=== PATIENT | female | born 1995 | race Caucasian/White ===

== ENCOUNTER 2017-01-03 13:37 | Emergency (ER) | payer BC ==
[2017-01-03] MEDS ORDERED: SODIUM CHLORIDE 0.9% 1,000 ML IV ONE (16:01)
[2017-01-03] MEDS ORDERED: PENICILLIN V POTASSIUM 250 MG TAB PO STA (16:01)
[2017-01-03 16:49] LABS: Basophils % (A) 0 %; CH 31.3; CHCM 34.1; Eosinophils # (A) 0.1 k/uL (0-0.7); Eosinophils % (A) 1 %; HCT 41.6 % (34.0-46.0); HDW 2.26; HGB 14.3 gm/dL (11.4-16.0); Luc # (Auto) 0.06; Luc % (Auto) 1; Lymphocytes # (A) 1.1 k/uL (1.0-4.8); Lymphocytes % (A) 20 %; MCH 31.7 pg (25.0-35.0); MCHC 34.5 g/dL (31.0-37.0); MCV 92.1 fL (80.0-100.0); Mean Platelet Volume 6.6; Monocytes # (A) 0.2 k/uL (0-1.0); Monocytes % (A) 4 %; Neutrophils # (A) 4.2 k/uL (1.3-7.7); Neutrophils % (A) 74 %; RBC 4.52 m/uL (3.80-5.40); RDW 12.5 % (11.5-15.5); WBC 5.7 k/uL (3.8-10.6); WBC (Perox) 5.82
[2017-01-03 17:00] LABS: Anion Gap 11 mmol/L; Blood Urea Nitrogen 7 mg/dL (7-17); Calcium 9.8 mg/dL (8.4-10.2); Carbon Dioxide 25 mmol/L (22-30); Chloride 108 mmol/L (98-107); Glucose 108 mg/dL (74-99); Non-African American GFR(MDRD) >60 (>60 ml/min/1.73 sqM); Potassium 4.1 mmol/L (3.5-5.1); Sodium 144 mmol/L (137-145)
[2017-01-03 17:20] LABS: HCG,Qualitative Serum Not Detected
--- NOTE | 2017-01-03 17:44 | ED ---
Dizziness HPI - General Chief Complaint: Dizziness Stated Complaint: Dizzy/Chills/Fever Time Seen by Provider: 01/03/17 15:27 Source: patient Mode of arrival: wheelchair Limitations: no limitations - History of Present Illness Initial Comments: 21-year-old female with past medical history of orthostatic hypotension percent for evaluation of dizziness for the last 4 days acutely worsening over the last day. She describes it as room spinning sensation and there is associated shortness breath nausea and subjective fever/chills however she denies any other symptoms including dysuria, chest pain, cough. She states that she has been having some dental pain and feels as though there is an abscess in her mouth however she is unable follow-up with a primary care physician or dentist as she has no insurance at this time. - Related Data Previous Rx's Medication Instructions Recorded Meclizine [Antivert] 25 mg PO TID #30 tab 01/03/17 Penicillin V Potassium [Pen Vee K] 500 mg PO QID #28 tab 01/03/17 Allergies Allergy/AdvReac Type Severity Reaction Status Date / Time ibuprofen [From Motrin] Allergy Anaphylaxis Verified 01/03/17 15:23 naproxen Allergy Anaphylaxis Verified 01/03/17 15:23 Review of Systems ROS Statement: Those systems with pertinent positive or pertinent negative responses have been documented in the HPI. ROS Other: All systems not noted in ROS Statement are negative. Constitutional: Reports: fever, chills Eyes: Denies: eye pain, eye discharge ENT: Reports: dental pain. Denies: ear pain, throat pain Respiratory: Reports: dyspnea. Denies: cough Cardiovascular: Denies: chest pain, palpitations Endocrine: Denies: fatigue, heat or cold intolerance Gastrointestinal: Denies: abdominal pain, nausea, vomiting Genitourinary: Denies: urgency, dysuria Musculoskeletal: Denies: back pain, arthralgia Skin: Denies: rash, lesions Neurological: Reports: vertigo. Denies: headache, weakness Psychiatric: Denies: anxiety, depression Hematological/Lymphatic: Denies: easy bleeding, easy bruising Past Medical History Past Medical History: No Reported History History of Any Multi-Drug Resistant Organisms: None Reported Past Surgical History: Cholecystectomy Past Psychological History: Anxiety Smoking Status: Current every day smoker Past Alcohol Use History: Rare Past Drug Use History: None Reported General Exam Limitations: no limitations General appearance: alert, in no apparent distress Head exam: Present: atraumatic, normocephalic, normal inspection Eye exam: Present: normal appearance, PERRL, EOMI. Absent: scleral icterus, conjunctival injection, periorbital swelling ENT exam: Present: normal exam, mucous membranes moist Neck exam: Present: normal inspection. Absent: tenderness, meningismus, lymphadenopathy Respiratory exam: Present: normal lung sounds bilaterally. Absent: respiratory distress, wheezes, rales, rhonchi, stridor Cardiovascular Exam: Present: regular rate, normal rhythm, normal heart sounds. Absent: systolic murmur, diastolic murmur, rubs, gallop, clicks GI/Abdominal exam: Present: soft, normal bowel sounds. Absent: distended, tenderness, guarding, rebound, rigid Rectal exam: Present: deferred Extremities exam: Present: normal inspection, full ROM, normal capillary refill. Absent: tenderness, pedal edema, joint swelling, calf tenderness Back exam: Present: normal inspection Neurological exam: Present: alert, oriented X3, CN II-XII intact Psychiatric exam: Present: normal affect, normal mood Skin exam: Present: warm, dry, intact, normal color. Absent: rash Course Vital Signs 01/03/17 01/03/17 01/03/17 13:47 15:27 16:25 Temperature 100.0 F H 98.0 F Pulse Rate 115 H 73 Respiratory 18 20 Rate Blood Pressure 119/76 114/71 Blood Pressure 122/63 [Right Arm Sitting] Blood Pressure 123/72 [Right Arm Standing] Blood Pressure 99/57 [Right Arm Supine] O2 Sat by Pulse 98 97 Oximetry 01/03/17 18:15 Temperature 98.6 F Pulse Rate 90 Respiratory 18 Rate Blood Pressure 122/74 Blood Pressure [Right Arm Sitting] Blood Pressure [Right Arm Standing] Blood Pressure [Right Arm Supine] O2 Sat by Pulse 99 Oximetry EKG Findings - EKG Comments: EKG Findings:: Normal sinus rhythm with ventricular rate of 87, GUSTAVO 154, QRS 80 , QT/QTC 396/476. Medical Decision Making - Medical Decision Making 21-year-old female presented for evaluation of dizziness described as head spinning for the last 4 days acutely worsening today. On physical examination she has cranial nerves II through XII intact without focal neurologic deficits and normal gait and station. ENT exam reveals a missing tooth (#31) but she states this previously been fractured. There is no surrounding loculated or fluctuant mass. Orthostatic vital signs were negative and labs revealed no significant abnormalities. Patient was negative for . On reevaluation the patient had improvement in symptoms and states that she was no longer dizzy or lightheaded. She was observed walking on the hallway with normal gait and station. She was updated on the results of all her labs and through shared decision making it was determined that she would be discharged with instructions to follow-up with her primary care physician but to return to this facility if her symptoms should worsen or persist. The patient was also given a prescription for antibiotics for dental infection and advised to follow-up with dentist. She was offered dental clinic information but refused at this time. The patient acknowledged an understanding of all information provided and agreed with this plan of care. - Lab Data Result diagrams: 01/03/17 16:34 01/03/17 16:34 Lab Results 01/03/17 01/03/17 Range/Units 16:34 16:34 WBC 5.7 (3.8-10.6) k/uL RBC 4.52 (3.80-5.40) m/uL Hgb 14.3 (11.4-16.0) gm/dL Hct 41.6 (34.0-46.0) % MCV 92.1 (80.0-100.0) fL MCH 31.7 (25.0-35.0) pg MCHC 34.5 (31.0-37.0) g/dL RDW 12.5 (11.5-15.5) % Plt Count 253 (150-450) k/uL Neutrophils % 74 % Lymphocytes % 20 % Monocytes % 4 % Eosinophils % 1 % Basophils % 0 % Neutrophils # 4.2 (1.3-7.7) k/uL Lymphocytes # 1.1 (1.0-4.8) k/uL Monocytes # 0.2 (0-1.0) k/uL Eosinophils # 0.1 (0-0.7) k/uL Basophils # 0.0 (0-0.2) k/uL Sodium 144 (137-145) mmol/L Potassium 4.1 (3.5-5.1) mmol/L Chloride 108 H (98-107) mmol/L Carbon Dioxide 25 (22-30) mmol/L Anion Gap 11 mmol/L BUN 7 (7-17) mg/dL Creatinine 0.50 L (0.52-1.04) mg/dL Est GFR (MDRD) Af Amer >60 (>60 ml/min/1.73 sqM) Est GFR (MDRD) Non-Af >60 (>60 ml/min/1.73 sqM) Glucose 108 H (74-99) mg/dL Calcium 9.8 (8.4-10.2) mg/dL HCG, Qual Not Detected Disposition Clinical Impression: Dizziness Disposition: HOME SELF-CARE Condition: Stable Instructions: Dizziness (ED) Additional Instructions: Please use medication as discussed. Please follow up with family doctor if symptoms have not improved over the next two days. Please return to the emergency room if your symptoms increase or worsen or for any other concerns. Prescriptions: Meclizine [Antivert] 25 mg PO TID #30 tab Penicillin V Potassium [Pen Vee K] 500 mg PO QID #28 tab Referrals: None,Stated [Primary Care Provider] - 1-2 days Kassie Cutler DO [Doctor of Osteopathic Medicine] - 1-2 days Time of Disposition: 17:58
[2017-01-03 19:14] VITALS: BP 122/74; PULSE 90; RESP 18; TEMP 98.6
== END 2017-01-03 18:20 | disposition home or self-care (01) ==
LOC: EC 13:37
DX: R42 Dizziness and giddiness (principal); R06.02 Shortness of breath; R50.9 Fever, unspecified; R11.0 Nausea; K08.89 Other specified disorders of teeth and supporting structures; F17.200 Nicotine dependence, unspecified, uncomplicated; Z88.6 Allergy status to analgesic agent
CPT/HCPCS: 36415; 80048; 84703; 85025; 93005; 96360; 99284

== ENCOUNTER 2019-04-30 17:13 | Emergency (ER) | payer BC ==
[2019-04-30 18:21] LABS: Appearance,Urine Clear (Clear); Bacteria,Urine Rare /hpf; Basophils % (A) 0 %; Bilirubin,Urine Negative (Negative); Blood,Urine Small (Negative); Color,Urine Yellow; Eosinophils # (A) 0.1 k/uL (0-0.7); Eosinophils % (A) 1 %; Glucose,Urine (UA) Negative (Negative); HCT 41.9 % (34.0-46.0); HGB 14.2 gm/dL (11.4-16.0); Hyaline Casts,Urine 1 /lpf (0-2); Ketones,Urine Negative (Negative); Leukocyte Esterase,Urine Negative (Negative); Lymphocytes # (A) 1.4 k/uL (1.0-4.8); Lymphocytes % (A) 20 %; MCH 32.3 pg (25.0-35.0); Mean Platelet Volume 6.7; Monocytes # (A) 0.3 k/uL (0-1.0); Monocytes % (A) 4 %; Mucus,Urine Moderate /hpf; Neutrophils # (A) 5.1 k/uL (1.3-7.7); Neutrophils % (A) 74 %; Nitrite,Urine Negative (Negative); PH, Urine 6.5 (5.0-8.0); Platelet Count 273 k/uL (150-450); Protein,Urine Negative (Negative); RBC 4.41 m/uL (3.80-5.40); RBC,Urine 1 /hpf (0-5); Specific Gravity,Urine 1.021 (1.001-1.035); Squamous Epithelial Cell,Urine 4 /hpf (0-4); Urobilinogen,Urine <2.0 mg/dL (<2.0); WBC,Urine 1 /hpf (0-5)
[2019-04-30 18:23] LABS: ALT 12 U/L (4-34); AST 22 U/L (14-36); African American GFR (CKD) >90 (>60 ml/min/1.73 sqM); Albumin 4.8 g/dL (3.5-5.0); Alkaline Phosphatase 39 U/L (38-126); Anion Gap 11 mmol/L; Blood Urea Nitrogen 8 mg/dL (7-17); Calcium 9.8 mg/dL (8.4-10.2); Carbon Dioxide 24 mmol/L (22-30); Chloride 105 mmol/L (98-107); Glucose 70 mg/dL (74-99); Non-African American GFR(CKD) >90 (>60 ml/min/1.73 sqM); Sodium 140 mmol/L (137-145); Total Bilirubin 0.6 mg/dL (0.2-1.3); Total Protein 7.8 g/dL (6.3-8.2)
--- NOTE | 2019-04-30 18:36 | ED ---
Abdominal Pain HPI - General Source: patient Mode of arrival: ambulatory Limitations: no limitations <Chela Montoya - Last Filed: 04/30/19 19:45> <Maicol Nash - Last Filed: 04/30/19 20:57> - General Chief Complaint: Abdominal Pain Stated Complaint: 8wks preg, cramping Time Seen by Provider: 04/30/19 17:17 - History of Present Illness Initial Comments: patient is a 23-year-old female presenting to emergency Department with complaints of vaginal bleeding and lower abdominal cramping that started today. Patient states she is approximately 8 weeks . . She does not yet seen an [employer]. Patient states she has been having a very small amount of spotting the last couple days and then that increased today, along with some abdominal cramping. patient states is not enough to fill a pad however she is wearing one. Patient denies dysuria, nausea, vomiting. Patient has no other complaints at this time. Upon arrival to the ER, her vital signs are stable. (Chela Montoya) - Related Data Previous Rx's Medication Instructions Recorded Meclizine [Antivert] 25 mg PO TID #30 tab 01/03/17 Penicillin V Potassium [Pen Vee K] 500 mg PO QID #28 tab 01/03/17 Allergies Allergy/AdvReac Type Severity Reaction Status Date / Time ibuprofen [From Motrin] Allergy Anaphylaxis Verified 04/30/19 17:14 naproxen Allergy Anaphylaxis Verified 04/30/19 17:14 Review of Systems ROS Other: All systems not noted in ROS Statement are negative. <Chela Montoya - Last Filed: 04/30/19 19:45> ROS Other: All systems not noted in ROS Statement are negative. <Maicol Nash - Last Filed: 04/30/19 20:57> ROS Statement: Those systems with pertinent positive or pertinent negative responses have been documented in the HPI. Past Medical History Past Medical History: No Reported History History of Any Multi-Drug Resistant Organisms: None Reported Past Surgical History: Cholecystectomy Past Psychological History: Anxiety Smoking Status: Current every day smoker Past Alcohol Use History: Rare Past Drug Use History: None Reported <Chela Montoya - Last Filed: 04/30/19 19:45> General Exam Limitations: no limitations External exam: Present: normal external exam. Absent: swelling, lesions, lacerations Speculum exam: Present: vaginal bleeding. Absent: foreign body By manual exam: Present: normal by manual exam <Chela Montoya Mark - Last Filed: 04/30/19 19:45> General appearance: alert, in no apparent distress Head exam: Present: atraumatic, normocephalic, normal inspection Eye exam: Present: normal appearance, PERRL, EOMI. Absent: scleral icterus, conjunctival injection, periorbital swelling ENT exam: Present: normal exam, mucous membranes moist Neck exam: Present: normal inspection. Absent: tenderness, meningismus, lymphadenopathy Respiratory exam: Present: normal lung sounds bilaterally. Absent: respiratory distress, wheezes, rales, rhonchi, stridor Cardiovascular Exam: Present: regular rate, normal rhythm, normal heart sounds. Absent: systolic murmur, diastolic murmur, rubs, gallop, clicks GI/Abdominal exam: Present: soft, normal bowel sounds. Absent: distended, tenderness, guarding, rebound, rigid Extremities exam: Present: normal inspection, full ROM, normal capillary refill. Absent: tenderness, pedal edema, joint swelling, calf tenderness Back exam: Present: normal inspection Neurological exam: Present: alert, oriented X3, CN II-XII intact Psychiatric exam: Present: normal affect, normal mood Skin exam: Present: warm, dry, intact, normal color. Absent: rash <Maicol Nash - Last Filed: 04/30/19 20:57> - General Exam Comments Initial Comments: GENERAL: Well-appearing, well-nourished and in no acute distress. HEAD: Atraumatic, normocephalic. EYES: Pupils equal round and reactive to light, extraocular movements intact, sclera anicteric, conjunctiva are normal. ENT: TMs normal, nares patent, oropharynx clear without exudates. Moist mucous membranes. NECK: Normal range of motion, supple without lymphadenopathy or JVD. LUNGS: Breath sounds clear to auscultation bilaterally and equal. No wheezes rales or rhonchi. HEART: Regular rate and rhythm without murmurs, rubs or gallops. ABDOMEN: Soft, nontender, normoactive bowel sounds. No guarding, no rebound. No masses appreciated. EXTREMITIES: Normal range of motion, no pitting or edema. No clubbing or cyanosis. SKIN: Warm, Dry, normal turgor, no rashes or lesions noted. (Chela Montoya) Course <Maicol Nash - Last Filed: 04/30/19 20:57> Vital Signs 04/30/19 17:14 Temperature 98.6 F Pulse Rate 111 H Respiratory 16 Rate Blood Pressure 123/87 O2 Sat by Pulse 96 Oximetry - Reevaluation(s) Reevaluation #1: 04/30/19 20:57 Spoke with The patient regarding findings, questions are answered (Jatinder Nash) Medical Decision Making - Lab Data Result diagrams: 04/30/19 18:00 04/30/19 18:00 <Chela Montoya - Last Filed: 04/30/19 19:45> - Lab Data Result diagrams: 04/30/19 18:00 04/30/19 18:00 - Radiology Data Radiology results: report reviewed (Ultrasound shows Positive gestational sac), image reviewed <Maicol Nash - Last Filed: 04/30/19 20:57> - Medical Decision Making patient is a 23-year-old female presenting with vaginal bleeding and abdominal cramping. Patient is currently 8 weeks . . Lab work shows no acute abnormalities. HCG Quant is 13,504. Urine shows small amount of blood otherwise normal. Trichomonas is negative. (Chela Montoya) 23 female who is in here for evaluation regarding some abdominal cramping but specifically spotting with . Ultrasound shows early IUP. Patient has no abdominal tenderness on exam. Patient can be discharged home (Wilner Nash) - Lab Data Lab Results 04/30/19 04/30/19 04/30/19 Range/Units 18:00 18:00 18:00 WBC 7.0 (3.8-10.6) k/uL RBC 4.41 (3.80-5.40) m/uL Hgb 14.2 (11.4-16.0) gm/dL Hct 41.9 (34.0-46.0) % MCV 95.0 (80.0-100.0) fL MCH 32.3 (25.0-35.0) pg MCHC 34.0 (31.0-37.0) g/dL RDW 12.0 (11.5-15.5) % Plt Count 273 (150-450) k/uL Neutrophils % 74 % Lymphocytes % 20 % Monocytes % 4 % Eosinophils % 1 % Basophils % 0 % Neutrophils # 5.1 (1.3-7.7) k/uL Lymphocytes # 1.4 (1.0-4.8) k/uL Monocytes # 0.3 (0-1.0) k/uL Eosinophils # 0.1 (0-0.7) k/uL Basophils # 0.0 (0-0.2) k/uL Sodium 140 (137-145) mmol/L Potassium 4.0 (3.5-5.1) mmol/L Chloride 105 (98-107) mmol/L Carbon Dioxide 24 (22-30) mmol/L Anion Gap 11 mmol/L BUN 8 (7-17) mg/dL Creatinine 0.46 L (0.52-1.04) mg/dL Est GFR (CKD-EPI)AfAm >90 (>60 ml/min/1.73 sqM) Est GFR (CKD-EPI)NonAf >90 (>60 ml/min/1.73 sqM) Glucose 70 L (74-99) mg/dL Calcium 9.8 (8.4-10.2) mg/dL Total Bilirubin 0.6 (0.2-1.3) mg/dL AST 22 (14-36) U/L ALT 12 (4-34) U/L Alkaline Phosphatase 39 (38-126) U/L Total Protein 7.8 (6.3-8.2) g/dL Albumin 4.8 (3.5-5.0) g/dL HCG, Quant 46465.2 mIU/mL Urine Color Urine Appearance (Clear) Urine pH (5.0-8.0) Ur Specific [place] (1.001-1.035) Urine Protein (Negative) Urine Glucose (UA) (Negative) Urine Ketones (Negative) Urine Blood (Negative) Urine Nitrite (Negative) Urine Bilirubin (Negative) Urine Urobilinogen (<2.0) mg/dL Ur Leukocyte Esterase (Negative) Urine RBC (0-5) /hpf Urine WBC (0-5) /hpf Ur Squamous Epith Cells (0-4) /hpf Urine Bacteria (None) /hpf Hyaline Casts (0-2) /lpf Urine Mucus (None) /hpf Trichomonas Ag (Rapid) (Negative) Blood Type O Positive Blood Type Recheck No Previous Record Bld Type Recheck Status [facility] ONLY 04/30/19 04/30/19 Range/Units 18:00 18:15 WBC (3.8-10.6) k/uL RBC (3.80-5.40) m/uL Hgb (11.4-16.0) gm/dL Hct (34.0-46.0) % MCV (80.0-100.0) fL MCH (25.0-35.0) pg MCHC (31.0-37.0) g/dL RDW (11.5-15.5) % Plt Count (150-450) k/uL Neutrophils % % Lymphocytes % % Monocytes % % Eosinophils % % Basophils % % Neutrophils # (1.3-7.7) k/uL Lymphocytes # (1.0-4.8) k/uL Monocytes # (0-1.0) k/uL Eosinophils # (0-0.7) k/uL Basophils # (0-0.2) k/uL Sodium (137-145) mmol/L Potassium (3.5-5.1) mmol/L Chloride (98-107) mmol/L Carbon Dioxide (22-30) mmol/L Anion Gap mmol/L BUN (7-17) mg/dL Creatinine (0.52-1.04) mg/dL Est GFR (CKD-EPI)AfAm (>60 ml/min/1.73 sqM) Est GFR (CKD-EPI)NonAf (>60 ml/min/1.73 sqM) Glucose (74-99) mg/dL Calcium (8.4-10.2) mg/dL Total Bilirubin (0.2-1.3) mg/dL AST (14-36) U/L ALT (4-34) U/L Alkaline Phosphatase (38-126) U/L Total Protein (6.3-8.2) g/dL Albumin (3.5-5.0) g/dL HCG, Quant mIU/mL Urine Color Yellow Urine Appearance Clear (Clear) Urine pH 6.5 (5.0-8.0) Ur Specific [place] 1.021 (1.001-1.035) Urine Protein Negative (Negative) Urine Glucose (UA) Negative (Negative) Urine Ketones Negative (Negative) Urine Blood Small H (Negative) Urine Nitrite Negative (Negative) Urine Bilirubin Negative (Negative) Urine Urobilinogen <2.0 (<2.0) mg/dL Ur Leukocyte Esterase Negative (Negative) Urine RBC 1 (0-5) /hpf Urine WBC 1 (0-5) /hpf Ur Squamous Epith Cells 4 (0-4) /hpf Urine Bacteria Rare H (None) /hpf Hyaline Casts 1 (0-2) /lpf Urine Mucus Moderate H (None) /hpf Trichomonas Ag (Rapid) Negative (Negative) Blood Type Blood Type Recheck Bld Type Recheck Status Disposition <Chela Montoya L - Last Filed: 04/30/19 19:45> Is patient prescribed a controlled substance at d/c from ED?: No <Maicol Nash - Last Filed: 04/30/19 20:57> Clinical Impression: Threatened Disposition: HOME SELF-CARE Condition: Good Instructions (If sedation given, give patient instructions): Threatened Miscarriage (ED) Referrals: None,Stated [Primary Care Provider] - 1-2 days Alicia López DO [Doctor of Osteopathic Medicine] - 1-2 days
[2019-04-30 19:05] LABS: HCG,Quantitative Serum 13504.2 mIU/mL
--- NOTE | 2019-04-30 20:44 | US ---
EXAMINATION TYPE: Transabdominal DATE OF EXAM: 04/30/2019 8:12 PM COMPARISON: NONE CLINICAL HISTORY: bleeding, pain. Bleeding, light pain x 3 days. EXAM PERFORMED: Transabdominal (TA). Transvaginal not performed per ordering physician. EXAM MEASUREMENTS: GESTATIONAL AGE / DATING Physician Established: Not yet established. Dates by LMP: (10 weeks/4 days) EDC: 11/22/2019 Dates by First Scan: This is first scan Dates by Current Scan for: Only gestational sac seen at this time. (5 weeks/5 days) EDC: 12/26/2019 MATERNAL ANATOMY Uterus: 7.8 x 5.9 x 5.5 cm. Right Ovary: 3.2 x 2.2 x 1.8 cm. Area of mixed echogenicity and peripheral vascularity seen within th e right ovary measurin.6 x 1.4 x 1.4 cm. Left Ovary: Not visualized. Post CDS / Adnexa: Appear to be wnl. Presence of free fluid: Not seen. Presence of corpus luteal cyst: Area of mixed echogenicity and peripheral vascularity seen within the right ovary measurin.6 x 1.4 x 1.4 cm. Presence of subchorionic bleed: Not seen GESTATION / SURVEY MSD: 1.46 cm. (5 weeks/5 days) IUP: Only possible gestational sac seen at this time. Date of LMP: 02/15/2019 Beta HcG (if available): 13,504.2 IMPRESSION: Possible early intrauterine gestational sac. Follow-up recommended in 2 weeks to confirm a living fet us of clinically indicated. Sac measures 18 x 5 x 20 mm.
[2019-04-30 21:09] VITALS: BP 115/71; PULSE 70; RESP 18; TEMP 97.6
[2019-05-01 16:34] LABS: C. trachomatis,PCR Negative (Neg,Equiv); Chlamydia trachomatis Source Cervix
[2019-05-01 16:41] LABS: N. gonorrhoeae,PCR Negative (Neg,Equiv); Neisseria Source Cervix
== END 2019-04-30 21:00 | disposition home or self-care (01) ==
LOC: EC 17:13
DX: O20.0 Threatened abortion (principal); O99.331 Smoking (tobacco) complicating pregnancy, first trimester; F17.200 Nicotine dependence, unspecified, uncomplicated; Z3A.08 8 weeks gestation of pregnancy; Z88.6 Allergy status to analgesic agent
CPT/HCPCS: 36415; 76801; 80053; 81001; 84702; 85025; 86900; 86901; 87070; 87491; 87591; 87808; 99284

== ENCOUNTER → 2023-10-26 | Day surgery (SDC) | payer BC ==
--- NOTE | 2023-10-25 09:25 | P.HPOR ---
History of Present Illness H&P Date: 10/25/23 Subjective: This is a 28 year old female that presents today for initial evaluation regarding a year history of progressively worsening right and left hand paresthesias in the thumb, index, middle and ring fingers with the right being worse than the left. The patient has tried bracing with little relief. They deny any inciting event or neck pain. She works as a cook at [employer] and notes worsening pain and burning in the hands and wrist that is worse after work. Physical Examination: RUE: AIN/PIN/Radial/Ulnar/Median motor intact. Radial/Ulnar/Median SILT. 2+/4 Radial/Ulnar pulses palpated. 5/5 APB, 5/5 FDI. Negative Finkelsteins, negative CMC grind, positive Durkan's compression. LUE: AIN/PIN/Radial/Ulnar/Median motor intact. Radial/Ulnar/Median SILT. 2+/4 Radial/Ulnar pulses palpated. 5/5 APB, 5/5 FDI. Negative Finkelsteins, negative CMC grind, positive Durkan's compression. Impression: 1.) Right carpal tunnel syndrome 2.) Left carpal tunnel syndrome Plan: Diagnosis and treatment options were discussed with the patient. The patient has failed conservative treatment and would like to pursue a right endoscopic vs open carpal tunnel release. Risks and benefits of surgery including bleeding, infection, damage to surrounding tissue, need for further surgery, possible need to convert to open procedure, residual numbness were discussed and the patient wished to go forward with surgery. I anticipate 2-4 weeks off work, this can be extended if needed at first post op appointment. -Kye Wright DO Orthopedic Hand/Upper Extremity Surgeon Past Medical History Past Medical History: Thyroid Disorder Additional Past Medical History / Comment(s): seasonal allergies. ? bulging disc - back pain. Hx of broken back. History of Any Multi-Drug Resistant Organisms: None Reported Past Surgical History: Back Surgery, Cholecystectomy Additional Past Surgical History / Comment(s): wisdom teeth removed Past Anesthesia/Blood Transfusion Reactions: No Reported Reaction Smoking Status: Former smoker, Vaper - Past Family History Brother(s) Additional Family Medical History / Comment(s): enlarged heart from HTN- Mother Family Medical History: Cancer Additional Family Medical History / Comment(s): cervical cancer- HPV Medications and Allergies Home Medications Medication Instructions Recorded Confirmed Type Acetaminophen [Tylenol Extra 1,000 mg PO BID PRN 10/24/23 10/24/23 History Strength] Levothyroxine Sodium [Levo-T] 50 mcg PO DAILY 10/24/23 10/24/23 History Loratadine [Claritin] 10 mg PO DAILY 10/24/23 10/24/23 History Unk Airborne Immune Vit 1 tab PO DAILY 10/24/23 10/24/23 History Unk Beet Supplement 1 tab PO DAILY 10/24/23 10/24/23 History Unk Magnesium 1 tab PO DAILY 10/24/23 10/24/23 History methylPREDNISolone Dose Pack 4 mg PO DIRECTED 10/24/23 10/24/23 History [Medrol Dose Pack] Allergies Allergy/AdvReac Type Severity Reaction Status Date / Time ibuprofen [From Motrin] Allergy Anaphylaxis Verified 10/24/23 12:53 naproxen Allergy Anaphylaxis Verified 10/24/23 12:53 Physical Examination Osteopathic Statement: *. No significant issues noted on an osteopathic s tructural exam other than those noted in the History and Physical/Consult.
[~2023-10-26] MED LIST: LIDOCAINE 1% (10MG/ML) FOR IV START INTRADERMA PRN; MIDAZOLAM 2 MG/2 ML VIAL ONE; PROPOFOL 10 MG/ML 20 ML VIAL IV ONE; Pre Op ABX Message 1 EACH MISC MISCELLANE ONE; fentaNYL (PF) 50 MCG/ML 2 ML AMP ONE
[2023-10-26] MEDS: IV FLUID CONTINUATION 1,000 ML IV ONE (12:10)
[2023-10-26 12:22] VITALS: TEMP 97.6
[2023-10-26] MEDS: DEXAMETHASONE SOD PHOSPHATE 4 MG/ML 1 ML VIAL IVP STA (12:46)
[2023-10-26] MEDS: ONDANSETRON 4 MG/2 ML VIAL IVP STA (12:47)
[2023-10-26] MEDS: LACTATED RINGERS 1,000 ML IV SCH (12:47)
[2023-10-26] MEDS: SCOPOLAMINE 1 MG/72 HR PATCH TRANSDERM STA (12:47)
[2023-10-26] MEDS: LIDOCAINE 1% INJ 10MG/ML (20 ML MDV) SQ ONE ×2 (13:00→13:10)
[2023-10-26] MEDS: BUPIVACAINE (PF) 0.5% 30 ML VIAL SQ ONE ×2 (13:00→13:10)
--- NOTE | 2023-10-26 13:28 | P.OP ---
Date of Procedure: 10/26/23 Preoperative Diagnosis: Right carpal tunnel syndrome Postoperative Diagnosis: Right carpal tunnel syndrome Procedure(s) Performed: Right endoscopic carpal tunnel release Anesthesia: MAC Surgeon: Kye Wright Estimated Blood Loss (ml): 0 Pathology: none sent Condition: stable Disposition: PACU Description of Procedure: This is a 28 year old female who presents today for a right endoscopic carpal tunnel release after having failed conservative treatment in the past. Risks and benefits of surgery were discussed with the patient including bleeding, damage to surrounding tissue, infection, need to convert to open procedure, need for further surgery as well as risks of anesthesia including pulmonary embolism and even and the patient wished to proceed with surgical intervention. The patients was seen in the pre-operative area by myself. Consent and H&P were completed and updated. The correct extremity was marked in the pre-operative area by myself and all other questions were answered. Operative Narrative: The patient was brought to the operating room by the department of anesthesia. They remained on the portable stretcher and a rolling hand table was brought to the side of the operative extremity. Pre-operative time out was performed indicating the correct patient, procedure and laterality. All in the room agreed. The patient was then drifted off to sleep by the department of anesthesia. MAC anesthesia was utilized and a 50:50 mixture of 1% Lidocaine and 0.5% bupivacaine was injected into the subcutaneous tissues of the palmar skin, 8ccs total. A nonsterile tourniquet was then applied to the operative extremity and the right upper extremity was then prepped and draped in normal sterile fashion. The operative extremity was the exsanguinated with an esmarch bandage and the tourniquet was inflated to 250mmHg. 15 blade scalpel was utilized to make a transverse incision on the palmar skin just ulnar to the palmaris longus tendon at the level of the distal wrist crease. Ragnell retractor was then placed radially and blunt dissection was performed to reveal the distal forearm fascia. This was lifted with fine Sammy pick ups and Littler tenotomy scissors were then used to open the forearm fascia transversely and a double skin hook was then placed. Hamate finder was placed into the carpal tunnel and then sequential sized dilators were inserted followed by the synovial elevator to separate the flexor tenosynovium from the undersurface of the transverse carpal ligament and a washboard texture was felt. The MicroAire endoscopic carpal tunnel release system gun was the then inserted into the carpal tunnel hugging the deep portion of the transverse carpal ligament in line with the base of the ring finger. Transverse fibers of the ligament were directly visualized. Pressure was applied on the palm to reveal t he distal extent of the transverse carpal ligament. The blade was then deployed and the distal half of the transverse carpal ligament was released. The scope was then brought distal again and remaining transverse fibers were incised with the blade. The proximal half of the transverse carpal ligament was then divided and again the scope was advanced distal and remaining transverse fibers were incised with the blade. The radial and ulnar leaflets were directly visualized and mobile consistent with complete release. Tenotomy scissors were then utilized to release the remaining distal forearm fascia under direct visualization taking care to preserve the palmar cutaneous branch of the median nerve. Skin closure was performed with interrupted 4-0 Monocryl suture followed by steri strips. Sterile dressing was applied consisting 4x4s, Webril, and an jose elias bandage. Tourniquet was let down and the hand immediately was well perfused. The patient was then woken by the department of anesthesia and transferred to PACU in stable condition. Kye Wright D.O. Orthopedic Hand/Upper Extremity Surgeon
[2023-10-26 13:54] VITALS: BP 100/55; PULSE 69; RESP 18
== END | disposition home or self-care (01) ==
LOC: OR 11:55
PROVIDERS: ATTEND Orthopaedic Surgery Hand Surgery
DX: G56.01 Carpal tunnel syndrome, right upper limb (principal); E07.9 Disorder of thyroid, unspecified; Z79.890 Hormone replacement therapy; Z87.891 Personal history of nicotine dependence; Z88.6 Allergy status to analgesic agent; Z90.49 Acquired absence of other specified parts of digestive tract
CPT/HCPCS: 81025; 29848; J2250; J1100; J2405; J2001; J3010; J2704; J0665

== ENCOUNTER → 2024-07-31 | Outpatient (CLI) | payer BC ==
--- NOTE | 2024-07-31 13:03 | US ---
EXAMINATION TYPE: US venous doppler duplex LE LT DATE OF EXAM: 07/31/2024 12:51 PM COMPARISON: NONE CLINICAL INDICATION: Female, 29 years old with history of R22.42 LOCALIZED SWELLING MASS LUMP; Left a nkle pain x 1 week. No hx of DVT. Patient does not take blood thinners. TECHNIQUE: The lower extremity deep venous system is examined utilizing real time linear array sonog leticia with graded compression, color doppler sonography, and spectral doppler. SIDE PERFORMED: Left FINDINGS: VESSELS IMAGED: Common Femoral Vein Deep Femoral Vein Greater Saphenous Vein * Femoral Vein Popliteal Vein Small Saphenous Vein * Proximal Calf Veins (* superficial vessels) Left Leg: No evidence of DVT, Color Doppler imaging shows patency of the vessels. Spectral waveforms are within normal limits. IMPRESSION: No evidence of DVT at this time. [facility], , 07/31/2024 1:01 PM
--- NOTE | 2024-07-31 13:35 | XR ---
EXAMINATION TYPE: XR ankle complete LT DATE OF EXAM: 07/31/2024 1:13 PM COMPARISON: None. CLINICAL INDICATION: Female, 29 years old with history of R22.42 LOCALIZED SWELLING MASS LUMP, TECHNIQUE: XR ankle complete LT, views submitted for evaluation. FINDINGS: There is no evidence for fracture or dislocation. The joint spaces appear within normal limits. The overlying soft tissue appears unremarkable. Ankle mortise is intact. Soft tissues are within normal l imits. IMPRESSION: 1. No evidence for acute fracture. [facility], , 07/31/2024 1:33 PM
== END | disposition home or self-care (01) ==
LOC: RADUSWWP 12:30
PROVIDERS: ATTEND Family Medicine
DX: R22.42 Localized swelling, mass and lump, left lower limb (principal)

== ENCOUNTER 2024-11-21 10:34 | Day surgery (SDC) | payer BC ==
[2024-11-19 15:48] VITALS: BMI 25.8
--- NOTE | 2024-11-21 10:41 | P.GSHP ---
History of Present Illness H&P Date: 11/21/24 CHIEF COMPLAINT: Dysphagia and change in bowel habits HISTORY OF PRESENT ILLNESS: The patient is a 29-year-old female who presents with dysphagia, gastroesophageal reflux disease and change in bowel habits over 6 months. Upper and lower endoscopy were offered for further evaluation and management. PAST MEDICAL HISTORY: Please see list. PAST SURGICAL HISTORY: Please see list. MEDICATIONS: Please see list. ALLERGIES: Please see list. SOCIAL HISTORY: No illicit drug use FAMILY HISTORY: No reports of Crohn disease or ulcerative colitis. REVIEW OF ORGAN SYSTEMS: CONSTITUTIONAL: No reports of fevers or chills. GI: Has change in bowel habits PHYSICAL EXAM: VITAL SIGNS: Stable GENERAL: Well-developed pleasant in no acute distress. HEENT: No scleral icterus. Extraocular movements grossly intact. Moist buccal mucosa. NECK: Supple without lymphadenopathy. CHEST: Unlabored respirations. Equal bilateral excursions. CARDIOVASCULAR: Regular rate and rhythm. Distal 2+ pulses. ABDOMEN: Soft, nondistended. MUSCULOSKELETAL: No clubbing, cyanosis, or edema. ASSESSMENT: 1. Dysphagia and gastroesophageal reflux disease 2. Change in bowel habits PLAN: 1. Recommend proceeding with an upper and lower endoscopy with biopsies Past Medical History Past Medical History: GERD/Reflux, Thyroid Disorder Additional Past Medical History / Comment(s): bleeding with stools, and persistent heart burn had infected burn rt arm-currently finishing antibiotic- last dose on 11-20-24,seasonal allergies. ? bulging disc - back pain. Hx of broken back. History of Any Multi-Drug Resistant Organisms: None Reported Past Surgical History: Back Surgery, Cholecystectomy Additional Past Surgical History / Comment(s): wisdom teeth removed,rt wrist carpel tunnel Past Anesthesia/Blood Transfusion Reactions: No Reported Reaction Additional Past Anesthesia/Blood Transfusion Reaction / Comment(s): no hx blood transfusion Smoking Status: Current every day smoker, Vaper - Past Family History Brother(s) Additional Family Medical History / Comment(s): enlarged heart from HTN- Mother Family Medical History: Cancer Additional Family Medical History / Comment(s): cervical cancer- HPV Medications and Allergies Home Medications Medication Instructions Recorded Confirmed Type Levothyroxine Sodium [Levo-T] 50 mcg PO QAM 10/24/23 11/19/24 History cefuroxime axetiL [Ceftin] 500 mg PO BID 11/19/24 11/19/24 History Allergies Allergy/AdvReac Type Severity Reaction Status Date / Time ibuprofen [From Motrin] Allergy Anaphylaxis Verified 11/19/24 15:38 naproxen Allergy Anaphylaxis Verified 11/19/24 15:38 shellfish derived [Shellfish] Allergy Anaphylaxis Verified 11/19/24 15:39
[2024-11-21] MEDS: LACTATED RINGERS 1,000 ML IV SCH (11:15)
[2024-11-21] MEDS: LIDOCAINE 1% (10MG/ML) FOR IV START INTRADERMA STA (11:15)
[2024-11-21] MEDS: IV FLUID CONTINUATION 1,000 ML IV ONE (11:15)
[2024-11-21] MEDS ORDERED: LIDOCAINE 1% INJ 10MG/ML (20 ML MDV) ONE (11:20)
[2024-11-21] MEDS ORDERED: PROPOFOL 10 MG/ML 20 ML VIAL IV ONE (11:20)
[2024-11-21 11:25] VITALS: RESP 16; TEMP 97.5
--- NOTE | 2024-11-21 11:52 | P.PCN ---
Date of Procedure: 11/21/24 Description of Procedure: PREOPERATIVE DIAGNOSIS: Gastroesophageal reflux disease. Dysphagia POSTOPERATIVE DIAGNOSIS: Gastroesophageal reflux disease. Gastritis. Diaphragmatic hiatal hernia OPERATION: Esophagogastroduodenoscopy with cold forceps biopsies along esophagus, antrum and duodenum SURGEON: Debby Myers MD ANESTHESIA: MAC. INDICATIONS: The patient is a 29-year-old female who presents with dysphagia and reflux disease. Benefits and risks of the procedure were described. Informed consent was obtained. DESCRIPTION: The patient was brought into the endoscopy suite and laid in the left lateral decubitus position. An Olympus gastroscope was passed along the posterior oropharynx down to the distal esophagus where the squamocolumnar junction was encountered at 40 cm from the incisors. The stomach was entered and no bile reflux was found. Additional findings are listed below. Biopsies with cold forceps were obtained of the antrum. The first through third portion of the duodenum was examined. Retroflexion of the scope confirmed Hill grade 2 lower esophageal valve. The squamocolumnar junction demonstrated LA grade B erosive esophagitis. The stomach was desufflated. The patient tolerated the procedure well. FINDINGS: Squamocolumnar junction 40 cm from the incisors. Diaphragmatic hiatus at 40 cm. Hill grade 2 lower esophageal valve. LA grade B erosive esophagitis. Biopsies obtained. Biopsies obtained of the duodenum. Chronic gastritis with biopsies obtained. RECOMMENDATIONS: Upper endoscopy as needed.
--- NOTE | 2024-11-21 11:56 | P.PCN ---
Date of Procedure: 11/21/24 Description of Procedure: PREOPERATIVE DIAGNOSIS: Abnormal stool function Change in bowel habits POSTOPERATIVE DIAGNOSIS: Microscopic colitis Constipation OPERATION: Colonoscopy to the cecum, ileocecal valve and appendiceal orifice. Colonoscopy with random cold forceps biopsies for microscopic colitis SURGEON: Debby Myers MD. ANESTHESIA: MAC. INDICATIONS: The patient is a 29-year-old female who presents with altered stools including change in bowel habits. Benefits and risks were described and informed consent was obtained. DESCRIPTION OF PROCEDURE: The patient had undergone Suprep. The patient had been brought into the operating room and laid in the left lateral decubitus position. After adequate intravenous sedation, the rectum was examined with 2% lidocaine jelly. No external hemorrhoids were encountered. The rectal tone was within normal limits. No lesions were palpated in the rectal vault. An Olympus colonoscope was advanced until the cecum, ileocecal valve and appendiceal orifice were clearly viewed. The prep was poor limiting view of mucosa. No scattered diverticulosis was encountered. No colonic polyps were found. Cold forceps biopsies randomly were obtained for microscopic colitis. Retroflexion of the scope demonstrated grade 1 internal hemorrhoids without active bleeding or inflammation. The colon was desufflated. The patient had tolerated the procedure well. Withdrawal time was over 6 minutes. FINDINGS: Aronchick preparation quality scale 4 (1-5), moderate brown liquid stool Internal hemorrhoids, grade 1 No external prolapsed hemorrhoids. No arteriovenous malformations. No adenomatous polyps. Cold forceps biopsies obtained for microscopic colitis Extremely poor prep with liquid stool. RECOMMENDATIONS: Lower endoscopy as needed Plan - Discharge Summary Discharge Rx Participant: No New Discharge Prescriptions: Continue Levothyroxine Sodium [Levo-T] 50 mcg PO QAM cefuroxime axetiL [Ceftin] 500 mg PO BID Discharge Medication List Levothyroxine Sodium [Levo-T] 50 mcg PO QAM 10/24/23 [History] cefuroxime axetiL [Ceftin] 500 mg PO BID 11/19/24 [History] Follow up Appointment(s)/Referral(s): Debby Myers MD [STAFF PHYSICIAN] - 12/18/24 1:30 pm Patient Instructions/Handouts: Gastritis (DC) Discharge Disposition: HOME SELF-CARE
[2024-11-21 12:19] VITALS: BP 96/61; PULSE 78
== END 2024-11-21 12:31 | disposition home or self-care (01) ==
LOC: ORWHC2ENDO 10:34
PROVIDERS: ATTEND Surgery Plastic and Reconstructive Surgery
DX: K64.0 First degree hemorrhoids (principal); K29.50 Unspecified chronic gastritis without bleeding; K21.00 Gastro-esophageal reflux disease with esophagitis, without bleeding; K44.9 Diaphragmatic hernia without obstruction or gangrene; E07.9 Disorder of thyroid, unspecified; F41.9 Anxiety disorder, unspecified; F17.290 Nicotine dependence, other tobacco product, uncomplicated; Z79.890 Hormone replacement therapy; Z79.2 Long term (current) use of antibiotics; Z87.892 Personal history of anaphylaxis; Z91.013 Allergy to seafood; Z88.6 Allergy status to analgesic agent
CPT/HCPCS: 81025; 45380; 43239; J2003; J2704; 88305